=== PATIENT | male | born 1970 | race Native Hawaiian/Other Pacific Islander ===

== ENCOUNTER 2019-05-25 03:20 | Observation (INO) | payer OTHER ==
[~2019-05-25] VITALS: Ht 177.8 cm; Wt 114.3 kg
[2019-05-25] VITALS (21 sets, daily range): BP systolic 91–239; BP diastolic 46–124; TEMP 97.8–98.2; Ht 177.8 cm; Wt 114.3 kg
[2019-05-25] MEDS ORDERED: BLOOD PRESSURE MED PO (03:36)
[2019-05-25 03:44] LABS: PLATELET COUNT 275 K/uL (142-355)
[2019-05-25 03:57] LABS: POTASSIUM 3.5 mmol/L (3.6-5.2); SODIUM 142 mmol/L (136-145)
[2019-05-25] MEDS ORDERED: METOPROLOL25 M1 PO (11:14)
[2019-05-25] MEDS ORDERED: CLON0.1T16 PO (11:15)
[2019-05-25] MEDS ORDERED: SERT100T PO (11:15)
[2019-05-25] MEDS ORDERED: LISI20TA11 PO (11:16)
[2019-05-25] MEDS ORDERED: PROBEN/COLCH1 TAB PO (11:16)
== END 2019-05-25 17:30 ==
LOC: ED 03:20 → MED/SURG 07:35
PROVIDERS: Emergency Medicine; ADMIT Internal Medicine
DX: R07.89 Other chest pain (principal); I10 Essential (primary) hypertension; M10.9 Gout, unspecified; R20.2 Paresthesia of skin
CPT/HCPCS: 36415; 80053; 82550; 82553; 84484; 85027; 93005; 96374; 99220; 99284; G0378; J0360; J1650

== ENCOUNTER 2019-05-27 00:23 | Emergency (ER) | payer OTHER ==
[~2019-05-27] VITALS: Ht 177.8 cm; Wt 111.1 kg
[~2019-05-27 00:23] MED LIST: BLOOD PRESSURE MED PO; CLON0.1T16 PO; LISI20TA11 PO; METOPROLOL25 M1 PO; PROBEN/COLCH1 TAB PO; SERT100T PO
[2019-05-27 00:26] VITALS: TEMP 97.9
[2019-05-27 00:54] LABS: PLATELET COUNT 280 K/uL (142-355)
[2019-05-27 01:03] LABS: POTASSIUM 3.5 mmol/L (3.6-5.2); SODIUM 142 mmol/L (136-145)
[2019-05-27 01:13] LABS: PARTIAL THROMBOPLASTIN TIME 24.5 SECONDS (24.5-33.6)
[2019-05-27 02:19] VITALS: BP 145/90
== END 2019-05-27 02:19 ==
LOC: ED 00:23
PROVIDERS: Family Medicine
DX: R07.89 Other chest pain (principal); R42 Dizziness and giddiness; W18.39XA Other fall on same level, initial encounter
CPT/HCPCS: 36415; 80053; 82550; 84484; 85007; 85027; 85610; 85730; 93005; 99284